=== PATIENT | female | born 1940 | race Caucasian/White ===

== ENCOUNTER → 2020-05-20 13:04 | Outpatient (CLI) | payer MEDICARE, SELFPAY ==
[2020-05-20 13:53] VITALS: BP 134/48; PULSE 67; RESP 16; TEMP 37.7; BMI 26.4
[2020-05-20 14:30] VITALS: BP 125/60; PULSE 60
== END ==
PROVIDERS: PCP Family Medicine
DX: M46.40 Discitis, unspecified, site unspecified (principal)
CPT/HCPCS: 96365; J7050; A4216